=== PATIENT | female | born 2000 | race Native Hawaiian/Other Pacific Islander ===

== ENCOUNTER 2022-03-18 14:18 | Emergency (ER) | payer BC, SELFPAY ==
--- NOTE | ~2022-03-18 | XR_ITS ---
EXAMINATION: XR SHOULDER, RIGHT XR CLAVICLE, RIGHT CLINICAL INFORMATION: Trauma, pain COMPARISON: CT cervical spine 03/18/2022. TECHNIQUE: The right shoulder is imaged in 3 views. The right clavicle is imaged in 2 views. There are total of 5 views. FINDINGS: There is no fracture or dislocation right shoulder or right clavicle. The glenohumeral joint appears normal. The acromioclavicular alignment is normal. There are no visible rotator cuff calcifications. The lung apices are clear. No pneumothorax. No subcutaneous emphysema demonstrated. XR/XR shoulder RT min 2V IMPRESSION: No fracture or dislocation.
--- NOTE | ~2022-03-18 | CT_ITS ---
EXAMINATION: CT CERVICAL SPINE WITHOUT CONTRAST CLINICAL INFORMATION: Fall, trauma, pain COMPARISON: None TECHNIQUE: Multidetector volumetric CT imaging of the cervical spine is performed without contrast in the axial plane. Additional 2D reformatted coronal and sagittal images are generated on the CT workstation and uploaded to PACS. This CT examination was performed using dose optimization techniques as appropriate, variously including the following: *Automated exposure control *Adjustment of mA and/or kV according to patient size (this includes techniques or standardized protocols for targeted exams where dose is matched to indication/reason for exam; i.e. extremities or head) *Use of iterative reconstruction technique DLP: 282 mGy-cm FINDINGS: There is gentle levocurvature and straightening with mild reversal cervical lordosis which may be related to muscle spasm. There is no vertebral compression fracture, fracture line, spondylolisthesis, or prevertebral soft tissue swelling. The craniocervical junction appears normal. The odontoid appears intact. No perched facet. There are no significant degenerative changes. There is no apical pneumothorax. CT/CT cervical spine wo con IMPRESSION: 1. No acute bony abnormality or prevertebral soft tissue swelling. 2. Mild reversal cervical lordosis with mild levocurvature which may be related to muscle spasm.
--- NOTE | ~2022-03-18 | XR_ITS ---
EXAMINATION: XR SHOULDER, RIGHT XR CLAVICLE, RIGHT CLINICAL INFORMATION: Trauma, pain COMPARISON: CT cervical spine 03/18/2022. TECHNIQUE: The right shoulder is imaged in 3 views. The right clavicle is imaged in 2 views. There are total of 5 views. FINDINGS: There is no fracture or dislocation right shoulder or right clavicle. The glenohumeral joint appears normal. The acromioclavicular alignment is normal. There are no visible rotator cuff calcifications. The lung apices are clear. No pneumothorax. No subcutaneous emphysema demonstrated. XR/XR clavicle RT IMPRESSION: No fracture or dislocation.
--- NOTE | ~2022-03-18 | CT_ITS ---
EXAMINATION: CT HEAD WITHOUT CONTRAST CLINICAL INFORMATION: Trauma, pain COMPARISON: None TECHNIQUE: Contiguous axial imaging was performed from the skull base to vertex without intravenous administration of contrast. Additional 2-D coronal and sagittal reformatted images are generated on the CT workstation and uploaded to PACS. This CT examination was performed using dose optimization techniques as appropriate, variously including the following: *Automated exposure control *Adjustment of mA and/or kV according to patient size (this includes techniques or standardized protocols for targeted exams where dose is matched to indication/reason for exam; i.e. extremities or head) *Use of iterative reconstruction technique DLP: 698 mGy-cm FINDINGS: There is no intracranial hemorrhage, hematoma, or extra-axial fluid collection. The ventricles are normal in size. There is no hydrocephalus, edema, or mass effect. The márquez-white matter differentiation appears well preserved . There is no visible acute territorial infarct or mass lesion. The calvarium appears intact. There is no pneumocephalus or orbital emphysema. The visualized sinuses and middle ears and mastoid air cells show no significant mucosal thickening. There are no air-fluid levels. CT/CT head/brain wo con IMPRESSION: Normal noncontrast CT head.
[2022-03-18 14:27] VITALS: BP 130/70; PULSE 79; O2SAT 97
[2022-03-18 14:37] VITALS: BP 114/55; PULSE 68; RESP 16; TEMP 36.9; O2SAT 99; BMI 22.6
--- NOTE | 2022-03-18 15:43 | ED_ITS ---
HPI - Extremity Problem General Chief complaint: Extremity Injury, Upper Stated complaint: MULTI INJURIES FROM FALL OFF SKATEBOARD PER EMS Time Seen by Provider: 03/18/22 15:09 Source: patient Mode of arrival: ambulatory History of Present Illness HPI Narrative: 21-year-old female with no significant past medical history presenting to the ED complaining of headache, right shoulder/upper back and collarbone pain s/p mechanical fall off skateboard [employer]. Admits to head strike, not wearing helmet, denies LOC or taking anticoagulation. Reports initial lightheadedness while in ambulance, resolved at present. Reports decreased range of motion to right arm secondary to pain. Denies numbness, tingling, weakness, abd pain, N/V, visual loss MD Complaint: extremity pain Onset (ago): hour(s) Pain Consistency: constant Location: right Related Data Allergies Allergy/AdvReac Type Severity Reaction Status Date / Time No Known Allergies Allergy Verified 03/18/22 14:50 Review of Systems Review of Systems: Constitutional: No Fever, No Chills, No Fatigue, No Malaise ENT/Mouth: No Ear Pain, No Nasal Congestion, No sore throat, No Rhinorrhea, No Swallowing Difficulty Eyes: No Eye Pain, No Swelling, No Vision Changes Cardiovascular: No Chest Pain, No SOB Respiratory: No Cough, No Sputum, No Dyspnea Gastrointestinal: No Nausea, No Vomiting, No Diarrhea, No Constipation, No Abdominal pain Genitourinary: No Dysuria, No Urinary Incontinence/retention, No Urgency, No Flank Pain Musculoskeletal:+ joint pain, No Myalgias, No Joint Swelling Skin: No Skin Lesions, No rash Neuro: No Weakness, No Numbness, No Paresthesias, No Loss of Consciousness, + lightheaded (resolved), + Headache Yes all other systems are reviewed and are negative FORMERLY [facility], [facility] Past Medical History Attestation statement: The following information was validated with the patient. Social History Social History Advance Directives: No Advance Directives Information Provided: No Physical Exam Vital Signs: Vital Signs: Last Vital Signs Temp 98.5 F 03/18/22 14:37 Pulse 68 03/18/22 14:37 Resp 16 03/18/22 14:37 BP 114/55 L 03/18/22 14:37 Pulse Ox 99 03/18/22 14:37 BMI result Body Mass Index 22.6 Const: General: cooperative, healthy appearing and no acute distress Orientation/consciousness: patient oriented x3 Limitations: no limitations HEENT: Head: Yes normal to inspection, Yes atraumatic, No Garcia's sign and No contusion Ears: hearing grossly normal bilaterally General nose exam: Normal external nose present Face and sinus: Yes normal facial exam Mouth: Normal oral and palatal mucosa present Throat: Yes posterior oropharynx normal Eyes: General: appearance normal, both eyes and all related structures Pupils: Equal, round and reactive pupils present EOM: EOMs intact bilaterally Neck: Other: No midline cervical spinous tenderness/step-off or deformity. Right-sided trapezius muscle tenderness Neck: Yes normal visual inspection and Yes no meningeal signs Chest: Chest palpation & inspection: normal inspection of the chest, no crepitus and no tenderness Resp: Effort & Inspection: normal respiratory effort and no respiratory distress Auscultation: clear to auscultation bilaterally Cardio: Rate: regular rate Heart sounds: S1 normal heart sound present and S2 normal heart sound present Peripheral pulses: radial pulses present GI: Inspection: Yes normal to inspection Palpation (GI): Soft to palpation, nontender, no guarding and not rigid Back/Spine/Pelvis: Other: No midline thoracic/lumbar spinous tenderness/step-off or deformity Skin: Other: + superficial abrasion noted to right shoulder Rashes: no rashes Neuro: General: patient oriented x3, gait normal, tone normal, moves all extremities, no meningeal signs, no focal motor deficits and CN's II-XI intact bilaterally Cranial nerves: Yes CN's II-XII intact bilaterally and Yes Equal, round and reactive pupils present Gait exam (Neuro): Normal gait present Motor exam (neuro): 5/5 motor strength present throughout Extrem: Other: Right shoulder with mild swelling. + tenderness to right clavicle, no appreciable deformity/ecchymosis or skin tenting. Right deltoid also tender to palpation. Decreased ROM to RUE secondary to pain. Elbow/forearm/wrist/hand nontender w/ FROM intact. NV intact distally Course Course Course Narrative: XR shoulder RT min 2V IMPRESSION: No fracture or dislocation.? XR clavicle RT IMPRESSION: No fracture or dislocation.? CT head/brain wo con IMPRESSION: Normal noncontrast CT head. CT cervical spine wo con IMPRESSION: 1.? No acute bony abnormality or prevertebral soft tissue swelling. 2.? Mild reversal cervical lordosis with mild levocurvature which may be related to muscle spasm. > results discussed with patient including worrisome signs and symptoms and strict return precautions and needed follow-up with PCP MDM - Extremity (Nontraumatic) MDM Narrative Medical decision making narrative: 21-year-old female with no significant past medical history presenting to the ED complaining of headache, right shoulder/upper back and collarbone pain s/p mechanical fall off skateboard [employer]. On exam vital signs stable, NAD, nontoxic appearing, physical exam as above. No midline spinous tenderness throughout, no red flag symptoms. Concern for ICH vs fracture vs sprain Plan: Head/C-spine CT, clavicle/shoulder x-ray Medical Records Attestation: I reviewed the patient's medical records. Lab Data Attestation: I reviewed the patient's lab results. Discharge Plan Discharge Clinical Impression: Myalgia, Muscle spasm Patient Disposition: Home, Self-Care Instructions: Muscle Spasm (ED) Additional Instructions: your imaging was reassuring No evidence of fractures or dislocations. Your CT scan of her neck does show evidence of muscle spasming. Please take Tylenol and Motrin as prescribed on the bottle. Ice and heat alternating. Follow up with her doctor. Return to the emergency department if symptoms persist or worsen Referrals: Physician,Rigo J [Primary Care Provider] -
== END 2022-03-18 18:15 | disposition home or self-care (01) ==
PROVIDERS: Emergency Provider Emergency Medicine
DX: M79.10 Myalgia, unspecified site (principal); M62.838 Other muscle spasm; R51.9 Headache, unspecified; M54.2 Cervicalgia; S40.211A Abrasion of right shoulder, initial encounter; V00.131A Fall from skateboard, initial encounter; Y93.51 Activity, roller skating (inline) and skateboarding; Y92.414 Local residential or business street as the place of occurrence of the external cause; Y99.9 Unspecified external cause status
CPT/HCPCS: 70450; 72125; 73000; 73030; 99284